=== PATIENT | female | born 1995 | race Caucasian/White ===

== ENCOUNTER 2016-05-04 13:40 | Emergency (ER) | payer MEDICAID, OTHER ==
[~2016-05-04] VITALS: Wt 118.0 kg
--- NOTE | 2016-05-04 16:49 | RADRPT ---
PROCEDURE: CT Paranasal Sinuses without Contrast CLINICAL INDICATION: Right facial pain, swelling TECHNIQUE: Transaxial images were obtained through the paranasal sinuses on a multi-slice scanner without the intravenous contrast administration. Sagittal and coronal re-formations were subsequentl y reconstructed. One or more of the following dose reduction techniques were used: - Automated exposure control. - Adjustment of the mA and/or kV according to patient size. - Use of iterative reconstruction technique. Radiation dose: CTDIvol = 23.97 mGy; DLP = 449.61 mGy-cm. COMPARISON: No prior studies are available for comparison. FINDINGS: Osseous structures: Appear intact with no fracture or destructive process evident. Paranasal sinuses: There is essentially complete opacification of the right maxillary, right ethmoid and right frontal sinus. Mucoperiosteal thickening is seen in a few left anterior ethmoid air cell s and within the left frontal sinus. Minimal mucoperiosteal thickening is seen in the sphenoid sinu s. Soft tissue density extends into the ostiomeatal complexes well as into the left nasal cavity. Mastoid air cells: Appear well pneumatized. Temporomandibular joints: Appear unremarkable. The middle ear cavities are well-aerated. Orbits: The ocular globes, optic nerves, and intraorbital contents appear unremarkable. Soft tissues: Appear unremarkable. IMPRESSION: 1. Sinonasal inflammatory disease extensively involving the right maxillary, ethmoid and frontal si nuses as well as a right nasal cavity and with mild inflammatory change involving left anterior ethm oid air cells, left frontal sinus, and the sphenoid sinus. 2. No osseous destruction is evident. 3. The orbits and orbital contents appear unremarkable. Physician Olayinka Date Time Electronically viewed and signed by Physician Olayinka on 05/04/2016 16:48 /
[2016-05-04] MEDS ORDERED: IBUP-1542 PO (17:04)
[2016-05-04] MEDS ORDERED: AMOX1TAB10 PO (17:04)
[2016-05-04] MEDS ORDERED: PRED20TA PO (17:04)
--- NOTE | 2016-05-04 17:07 | ERD ---
ER Documentation Chief Complaint Date/Time DATE: 05/04/16 TIME: 17:06 Chief Complaint right side facial swelling and ear pain. mild fevers no cough or st HPI This 20-year-old female presents with pain on the right forehead for last few days. She has right nasal congestion. She denies fevers, cough or sore throat. She is sent by primary doctor for further evaluation. She feels droopiness on the right upper eyelid. ROS All systems reviewed and are negative except as per history of present illness. Medications Home Meds Active Scripts Ibuprofen* (Motrin*) 600 Mg Tab, 600 MG PO Q6, #15 TAB Prov:TIANNA TAYLOR MD 05/04/16 Amoxicillin/Potassium Clav (Amox-Clav 875-125 mg Tablet) 875-125 mg Tab, 1 TAB PO BID for 7 Days, #20 TAB Prov:TIANNA TAYLOR MD 05/04/16 Prednisone* (Prednisone*) 20 Mg Tab, 40 MG PO DAILY for 4 Days, TAB Prov:TIANNA TAYLOR MD 05/04/16 Allergies Allergies: Coded Allergies: No Known Allergy (Unverified , 05/04/16) PMhx/Soc Medical and Surgical Hx: pt denies Medical Hx, pt denies Surgical Hx Hx Alcohol Use: No Hx Substance Use: No Hx Tobacco Use: No Physical Exam Vitals Vital Signs Date Time Temp Pulse Resp B/P Pulse Ox O2 Delivery O2 Flow Rate FiO2 05/04/16 13:47 100.5 122 21 140/71 98 Physical Exam Const: [] Alert, [id number], pleasant. Head: Atraumatic Eyes: Normal Conjunctiva ENT: Normal External Ears, Nose and Mouth. 2+ right nasal congestion. Some tenderness in the frontal area without erythema, fluctuance. Neck: Full range of motion..~ No meningismus. Resp: Clear to auscultation bilaterally Cardio: Regular rate and rhythm, no murmurs Abd: Soft, non tender, non distended. Normal bowel sounds Skin: No petechiae or rashes Back: No midline or flank tenderness Ext: No cyanosis, or edema Neur: Awake and alert Psych: Normal Mood and Affect Procedures/MDM The uncertain cause of headache and symptoms of CT sinuses was performed which shows pansinusitis primarily on the right side. Patient will be treated with Augmentin, ibuprofen and a short course prednisone instruction to follow-up with primary doctor and possible ENT referral. Patient should return for worsening headache, swelling, fevers, new worsening symptoms with primary care doctor. No signs or symptoms to suggest neurologic symptoms, meningitis, sepsis. Departure Diagnosis: Primary Impression: Sinusitis Sinusitis location: frontal Chronicity: acute Recurrence: not specified as recurrent Qualified Code: J01.10 - Acute frontal sinusitis, recurrence not specified Additional Impression: Swelling Condition: Stable Patient Instructions: Sinusitis, Abx Tx Additional Instructions: CT scan shows sinusitis. Recheck with primary doctor or for new or worsening symptoms. TIANNA TAYLOR MD May 04, 2016 17:07
[2016-05-04 17:22] VITALS: BP 134/65; PULSE 116; RESP 19; TEMP 100.7
[2016-05-04] MEDS ORDERED: CEFTRIAXONE 1 GM INJ IM ONE (17:30)
[2016-05-04] MEDS ORDERED: IBUPROFEN 600 MG TAB PO ONE (17:30)
[2016-05-04] MEDS ORDERED: LIDOCAINE 1% (MDV) 20 ML INJ SC ONE (17:30)
== END 2016-05-04 17:45 | disposition home or self-care (01) ==
LOC: FTE 13:40
DX: J01.10 Acute frontal sinusitis, unspecified (principal)
CPT/HCPCS: 70486; J0696; Z7610; 96372